=== PATIENT | female | born 1995 | race African-American/Black ===

== ENCOUNTER 2023-10-11 01:42 | Emergency (ER) | payer OTHER ==
[~2023-10-11] VITALS: Ht 157.5 cm; Wt 47.6 kg
[2023-10-11] MEDS ORDERED: ONDANSETRON HCL/PF 4 MG/2 ML VIAL ONE (01:59)
[2023-10-11] MEDS: IV NS 0.9% 1,000 ML BAG IV ONE (02:04)
[2023-10-11] MEDS: ONDANSETRON HCL/PF 4 MG/2 ML VIAL IVP ONE (02:04)
[2023-10-11] MEDS ORDERED: ONDA4TAB5 PO ×2 (02:44→09:56)
[2023-10-11 03:06] VITALS: BP 90/47; TEMP 99.2; O2SAT 99
[2023-10-12] MEDS ORDERED: ONDA4TAB5 PO (10:31)
[2023-10-12] MEDS ORDERED: OXYC1TAB8 PO (12:12)
== END 2023-10-11 03:15 | disposition home or self-care (01) ==
LOC: ER 01:44
DX: R11.2 Nausea with vomiting, unspecified (principal)
CPT/HCPCS: 99283; 96374; 96361; J2405; J7030

== ENCOUNTER 2023-10-12 08:49 | Inpatient (IN) | payer BC, OTHER ==
[2023-10-12] VITALS (12 sets, daily range): BP systolic 86–117; BP diastolic 22–58; TEMP 98.3–100; O2SAT 98–100
[~2023-10-12] VITALS: Ht 157.5 cm; Wt 46.3 kg
[~2023-10-12 08:49] MED LIST: ONDA4TAB5 PO
[2023-10-12] MEDS ORDERED: ONDANSETRON HCL/PF 4 MG/2 ML VIAL ONE (09:14)
[2023-10-12] MEDS: ONDANSETRON HCL/PF 4 MG/2 ML VIAL IVP ONE (09:15)
[2023-10-12] MEDS: IV NS 0.9% 1,000 ML BAG IV ONE (09:15)
[2023-10-12 09:44] LABS: BASOPHILS % (AUTO) 0.2 % (0.0-2.0); EOSINOPHILS % (AUTO) 0.2 % (0.0-6.0); HEMATOCRIT 44 % (33-45); HEMOGLOBIN 14.5 g/dL (11.5-14.8); LYMPHOCYTES # (AUTO) 0.1 K/uL (0.8-4.8); LYMPHOCYTES % (AUTO) 0.9 % (20.0-44.0); MEAN CORPUSCULAR HEMOGLOBIN 31 PG (26.0-33.0); MEAN CORPUSCULAR HGB CONC 33 g/dl (31.0-36.0); MEAN CORPUSCULAR VOLUME 92 fL (82-100); MONOCYTES # (AUTO) 0.3 K/uL (0.1-1.30); MONOCYTES % (AUTO) 1.5 % (2.0-12.0); NEUTROPHILS # (AUTO) 16.5 K/uL (1.8-8.9); NEUTROPHILS % (AUTO) 97.2 % (43.0-81.0); PLATELET COUNT (AUTO) 132 K/uL (150-450); RED BLOOD CELL COUNT(AUTO) 4.75 MIL/uL (4.0-5.2); RED CELL DISTRIBUTION WIDTH 13.3 % (11.5-15.0)
[2023-10-12 10:05] LABS: ALANINE AMINOTRANSFERASE 300 U/L (12-78); ALBUMIN 3.2 g/dL (3.4-5.0); ALKALINE PHOSPHATASE 51 U/L (46-116); ASPARTATE AMINOTRANSFERASE 777 U/L (15-37); BILIRUBIN,DIRECT 0.5 mg/dL (0.0-0.2); BILIRUBIN,TOTAL 1.1 mg/dL (0.2-1.0); CALCIUM, SERUM 8.4 mg/dL (8.5-10.1); CARBON DIOXIDE 20 mmol/L (21-32); CHLORIDE 94 mmol/L (98-107); GLUCOSE 122 mg/dL (74-106); LIPASE 15 U/L (16-77); POTASSIUM 3.3 mmol/L (3.5-5.1); SODIUM SERUM 131 mmol/L (136-145); TOTAL PROTEIN, SERUM 7.4 g/dL (6.4-8.2); UREA NITROGEN, BLOOD 46 mg/dL (7-18)
[2023-10-12 10:18] LABS: LACTIC ACID 5.8 mmol/L (0.4-2.0)
[2023-10-12] MEDS ORDERED: IOHEXOL-300 100 ML VIAL IV ONE (10:21)
[2023-10-12] MEDS ORDERED: IV NS 0.9% 250 ML IV ONE (10:21)
[2023-10-12] MEDS ORDERED: CT SWABBABLE VALVE TRANS SET 1 EA INFUS.SET MC ONE (10:21)
[2023-10-12] MEDS ORDERED: ONDA4TAB5 PO (10:31)
[2023-10-12] MEDS ORDERED: PIPERACI/TAZO 3.375GM/D5W 50ML PB IV ONE (10:47)
[2023-10-12] MEDS: PIPERACILLIN /TAZOBACTAM 3.375 G in IV D5W 50 ML IV ONE (10:55)
[2023-10-12 11:56] LABS: ACETAMINOPHEN <10 ug/ml (10-30); SALICYLATE 1.1 mg/dL (2.8-20.0)
[2023-10-12] MEDS ORDERED: OXYC1TAB8 PO (12:12)
[2023-10-12] MEDS ORDERED: MORPHINE SULFATE INJ 2 MG/ML DISP.SYRIN IV PRN (13:00)
[2023-10-12] MEDS ORDERED: Z GUARD REMEDY 4 OZ OINT TP PRN (13:00)
[2023-10-12] MEDS ORDERED: HYDROCODONE/APAP 5/325MG TABLET PO PRN (13:00)
[2023-10-12] MEDS: IV NS 0.9% 1,000 ML IV PRN ×2 (13:22→20:55)
[2023-10-12] MEDS: PIPERACILLIN /TAZOBACTAM 2.25 G in IV D5W 50 ML IV SCH (14:20)
[2023-10-12] MEDS: ACETAMINOPHEN 325 MG TABLET PO PRN (14:34)
[2023-10-12] MEDS: IV NS 0.9% 500 ML IV ONE (16:35)
[2023-10-12 18:59] LABS: BASOPHILS % (AUTO) 0.1 % (0.0-2.0); EOSINOPHILS # (AUTO) 0.1 K/uL (0.0-0.7); EOSINOPHILS % (AUTO) 0.5 % (0.0-6.0); HEMATOCRIT 35 % (33-45); HEMOGLOBIN 11.9 g/dL (11.5-14.8); LYMPHOCYTES # (AUTO) 0.2 K/uL (0.8-4.8); LYMPHOCYTES % (AUTO) 1.3 % (20.0-44.0); MEAN CORPUSCULAR HEMOGLOBIN 31 PG (26.0-33.0); MEAN CORPUSCULAR HGB CONC 34 g/dl (31.0-36.0); MEAN CORPUSCULAR VOLUME 92 fL (82-100); MONOCYTES # (AUTO) 0.2 K/uL (0.1-1.30); MONOCYTES % (AUTO) 1.1 % (2.0-12.0); NEUTROPHILS # (AUTO) 14.7 K/uL (1.8-8.9); PLATELET COUNT (AUTO) 71 K/uL (150-450); RED BLOOD CELL COUNT(AUTO) 3.83 MIL/uL (4.0-5.2); RED CELL DISTRIBUTION WIDTH 13.4 % (11.5-15.0); WHITE BLOOD COUNT (AUTO) 15.2 K/uL (4.3-11.0)
[2023-10-12 19:17] LABS: ALBUMIN 2.2 g/dL (3.4-5.0); CALCIUM, SERUM 6.7 mg/dL (8.5-10.1); CREATININE 4.6 mg/dL (0.6-1.3); PHOSPHORUS 3.6 mg/dL (2.5-4.9); POTASSIUM 3.4 mmol/L (3.5-5.1); TOTAL PROTEIN, SERUM 5.2 g/dL (6.4-8.2)
[2023-10-12 19:25] LABS: BAND % (MANUAL) 5 % (0.0-5.0); LYMPHOCYTES % (MANUAL) 1 % (16-48); MONOCYTES % (MANUAL) 6 % (0-11.0)
[2023-10-12 19:26] LABS: ANISOCYTOSIS 1+; PLATELET ESTIMATE DECREASED
[2023-10-12 19:27] LABS: OVALOCYTES 1+
[2023-10-12 19:30] LABS: NEUTROPHILS % (MANUAL) 88 (42-76)
[2023-10-12 19:35] LABS: MAGNESIUM 1.1 mg/dL (1.8-2.4)
[2023-10-12] MEDS ORDERED: Magnesium 1GM/D5W 100ML PREMIX 100 ML IV SCH (20:00)
[2023-10-12] MEDS ORDERED: IV NS 0.9% 1,000 ML BAG IV PRN (20:30)
[2023-10-12] MEDS: POTASSIUM CL. PREMIX PERIPHER. 50 ML IV SCH (20:43)
[2023-10-12] MEDS: Magnesium 1GM/D5W 100ML PREMIX 100 ML IV SCH (21:06)
[2023-10-12] MEDS: IV NS 0.9% 250 ML IV PRN (21:36)
[2023-10-12 22:20] LABS: APPEARANCE,URINE CLOUDY (CLEAR); BILIRUBIN,URINE 1+ (NEGATIVE); BLOOD, URINE 3+ Ery/uL (NEGATIVE); COLOR,URINE DARK YELLOW (YELLOW); KETONES,URINE NEGATIVE (NEGATIVE); LEUKOCYTE ESTERASE ,URINE 3+ (NEGATIVE); NITRITE, URINE NEGATIVE (NEGATIVE); PH,URINE 5.5 (5.0-8.0); PROTEIN,URINE 1+ mg/dl (NEGATIVE); UGLUCOSE NEGATIVE (NEGATIVE); UROBILINOGEN,URINE 0.2 EU/dL (0.2)
[2023-10-12 22:23] LABS: ADD URINE CULTURE YES; BACTERIA,URINE Few /HPF (None Seen); SQUAMOUS EPITHELIAL CELL,UR Moderate /HPF (None Seen); WBC,URINE 51-80 /HPF (0-3)
[2023-10-12] MEDS ORDERED: Magnesium 1GM/D5W 100ML PREMIX 100 ML IV ONE ×2 (23:30)
[2023-10-13] VITALS (42 sets, daily range): BP systolic 89–143; BP diastolic 28–99; TEMP 97.5–100.3; O2SAT 81–100
[2023-10-13] MEDS: ONDANSETRON HCL/PF 4 MG/2 ML VIAL IVP PRN (03:55)
[2023-10-13 04:06] LABS: BASOPHILS % (AUTO) 0.2 % (0.0-2.0); EOSINOPHILS # (AUTO) 0.1 K/uL (0.0-0.7); EOSINOPHILS % (AUTO) 1.4 % (0.0-6.0); HEMATOCRIT 32 % (33-45); HEMOGLOBIN 10.9 g/dL (11.5-14.8); LYMPHOCYTES # (AUTO) 0.2 K/uL (0.8-4.8); LYMPHOCYTES % (AUTO) 1.7 % (20.0-44.0); MEAN CORPUSCULAR HEMOGLOBIN 31 PG (26.0-33.0); MEAN CORPUSCULAR HGB CONC 34 g/dl (31.0-36.0); MEAN CORPUSCULAR VOLUME 91 fL (82-100); MONOCYTES # (AUTO) 0.1 K/uL (0.1-1.30); MONOCYTES % (AUTO) 1.2 % (2.0-12.0); NEUTROPHILS % (AUTO) 95.5 % (43.0-81.0); PLATELET COUNT (AUTO) 64 K/uL (150-450); RED BLOOD CELL COUNT(AUTO) 3.53 MIL/uL (4.0-5.2); RED CELL DISTRIBUTION WIDTH 13.7 % (11.5-15.0); WHITE BLOOD COUNT (AUTO) 10.5 K/uL (4.3-11.0)
[2023-10-13] MEDS ORDERED: MENTHOL/CETYLPYRD (CEPACOL) 1 LOZ LOZENGE ONE (04:14)
[2023-10-13] MEDS: MENTHOL/CETYLPYRD (CEPACOL) 1 LOZ LOZENGE PO ONE (04:15)
[2023-10-13 04:24] LABS: ALBUMIN 1.8 g/dL (3.4-5.0); CALCIUM, SERUM 6.1 mg/dL (8.5-10.1); CREATININE 4.9 mg/dL (0.6-1.3); PHOSPHORUS 3.8 mg/dL (2.5-4.9); POTASSIUM 3.9 mmol/L (3.5-5.1); TOTAL PROTEIN, SERUM 4.6 g/dL (6.4-8.2)
[2023-10-13] MEDS: PANTOPRAZOLE 40 MG VIAL IV SCH (08:05)
[2023-10-13] MEDS: IV LR 1000 ML 1,000 ML IV ONE (08:37)
[2023-10-13 08:46] LABS: APPEARANCE,URINE CLOUDY (CLEAR); BILIRUBIN,URINE NEGATIVE (NEGATIVE); BLOOD, URINE 3+ Ery/uL (NEGATIVE); COLOR,URINE YELLOW (YELLOW); KETONES,URINE NEGATIVE (NEGATIVE); LEUKOCYTE ESTERASE ,URINE NEGATIVE (NEGATIVE); NITRITE, URINE NEGATIVE (NEGATIVE); PROTEIN,URINE 1+ mg/dl (NEGATIVE); UGLUCOSE NEGATIVE (NEGATIVE); UROBILINOGEN,URINE 0.2 EU/dL (0.2)
[2023-10-13 08:50] LABS: CREATININE, URINE 56.1 MG/DL (30.0-125.0); URINE TOTAL PROTEIN 72.8 mg/dL (0-11.9)
[2023-10-13 08:55] LABS: ADD URINE CULTURE NO; BACTERIA,URINE Rare /HPF (None Seen); SQUAMOUS EPITHELIAL CELL,UR Moderate /HPF (None Seen)
[2023-10-13 09:22] LABS: PREGNANCY TEST URINE QUAL NEGATIVE (NEGATIVE)
[2023-10-13 09:47] LABS: EOSINOPHIL,URINE None Seen
[2023-10-13 11:43] LABS: ANISOCYTOSIS 1+; BASOPHILS % (MANUAL) 0 % (0.0-2.0); EOSINOPHILS % (MANUAL) 2 % (0-4); LYMPHOCYTES % (MANUAL) 5 % (16-48); MONOCYTES % (MANUAL) 6 % (0-11.0); NEUTROPHILS % (MANUAL) 87 (42-76); OVALOCYTES 1+; PLATELET ESTIMATE DECREASED
[2023-10-13 13:16] LABS: CALCIUM, SERUM 6.1 mg/dL (8.5-10.1); CREATININE 4.4 mg/dL (0.6-1.3); POTASSIUM 4.1 mmol/L (3.5-5.1)
[2023-10-13] MEDS: CEFEPIME 2 GM in IV D5W 100 ML IV SCH (13:17)
[2023-10-13] MEDS: METRONIDAZOLE 500MG/ NS 100ML 500 MG in PREMIX 1 EA IV SCH (14:06)
[2023-10-13] MEDS ORDERED: ALPR0.255 PO (21:12)
[2023-10-13] MEDS: LINEZOLID RTU BAG 600 MG in PREMIX 1 EA IV SCH (21:29)
[2023-10-13] MEDS ORDERED: NORMAL SALINE FLUSH 10 ML SYR MC PRN (21:30)
[2023-10-13] MEDS: ALPRAZOLAM 0.25 MG TABLET PO PRN (22:24)
[2023-10-14] VITALS (24 sets, daily range): BP systolic 90–130; BP diastolic 40–87; TEMP 97.7–98.6; O2SAT 97–100
[2023-10-14 04:48] LABS: BASOPHILS # (AUTO) 0.1 K/uL (0.0-0.2); BASOPHILS % (AUTO) 0.5 % (0.0-2.0); EOSINOPHILS # (AUTO) 0.1 K/uL (0.0-0.7); EOSINOPHILS % (AUTO) 0.5 % (0.0-6.0); HEMATOCRIT 29 % (33-45); HEMOGLOBIN 9.9 g/dL (11.5-14.8); LYMPHOCYTES # (AUTO) 0.4 K/uL (0.8-4.8); LYMPHOCYTES % (AUTO) 3.9 % (20.0-44.0); MEAN CORPUSCULAR HEMOGLOBIN 31 PG (26.0-33.0); MEAN CORPUSCULAR HGB CONC 34 g/dl (31.0-36.0); MEAN CORPUSCULAR VOLUME 90 fL (82-100); MONOCYTES # (AUTO) 0.6 K/uL (0.1-1.30); MONOCYTES % (AUTO) 5.3 % (2.0-12.0); NEUTROPHILS % (AUTO) 89.8 % (43.0-81.0); RED BLOOD CELL COUNT(AUTO) 3.21 MIL/uL (4.0-5.2); RED CELL DISTRIBUTION WIDTH 13.8 % (11.5-15.0); WHITE BLOOD COUNT (AUTO) 11.1 K/uL (4.3-11.0)
[2023-10-14 05:06] LABS: ALBUMIN 1.9 g/dL (3.4-5.0); BILIRUBIN,TOTAL 1.3 mg/dL (0.2-1.0); CALCIUM, SERUM 6.3 mg/dL (8.5-10.1); CREATININE 2.7 mg/dL (0.6-1.3); MAGNESIUM 2.1 mg/dL (1.8-2.4); PHOSPHORUS 3.2 mg/dL (2.5-4.9); POTASSIUM 4.2 mmol/L (3.5-5.1); TOTAL PROTEIN, SERUM 4.8 g/dL (6.4-8.2)
[2023-10-14 05:15] LABS: PLATELET COUNT (AUTO) 42 K/uL (150-450)
[2023-10-14 05:59] LABS: ANISOCYTOSIS 1+; BAND % (MANUAL) 2 % (0.0-5.0); BASOPHILS % (MANUAL) 0 % (0.0-2.0); EOSINOPHILS % (MANUAL) 0 % (0-4); LYMPHOCYTES % (MANUAL) 6 % (16-48); MONOCYTES % (MANUAL) 7 % (0-11.0); NEUTROPHILS % (MANUAL) 85 (42-76); PLATELET ESTIMATE DECREASED
[2023-10-14] MEDS ORDERED: SALINE NASAL SPRAY 0.65% 1 BOTTLE BOTTLE NS PRN (07:30)
[2023-10-14] MEDS: IV NS 0.9% 1,000 ML IV PRN (09:50)
[2023-10-14] MEDS: MENTHOL/CETYLPYRD (CEPACOL) 1 LOZ LOZENGE PO PRN (20:34)
[2023-10-15 08:00] VITALS: BP 94/59; TEMP 97.5; O2SAT 100
[2023-10-15 08:04] LABS: BASOPHILS % (AUTO) 0.1 % (0.0-2.0); EOSINOPHILS # (AUTO) 0.2 K/uL (0.0-0.7); EOSINOPHILS % (AUTO) 2.1 % (0.0-6.0); HEMATOCRIT 30 % (33-45); HEMOGLOBIN 10.1 g/dL (11.5-14.8); LYMPHOCYTES # (AUTO) 1.6 K/uL (0.8-4.8); LYMPHOCYTES % (AUTO) 18.9 % (20.0-44.0); MEAN CORPUSCULAR HEMOGLOBIN 31 PG (26.0-33.0); MEAN CORPUSCULAR HGB CONC 34 g/dl (31.0-36.0); MEAN CORPUSCULAR VOLUME 90 fL (82-100); MONOCYTES # (AUTO) 1.7 K/uL (0.1-1.30); MONOCYTES % (AUTO) 19.9 % (2.0-12.0); NEUTROPHILS # (AUTO) 5.1 K/uL (1.8-8.9); RED BLOOD CELL COUNT(AUTO) 3.29 MIL/uL (4.0-5.2); RED CELL DISTRIBUTION WIDTH 14.4 % (11.5-15.0); WHITE BLOOD COUNT (AUTO) 8.7 K/uL (4.3-11.0)
[2023-10-15 08:07] LABS: PTH, INTACT 153 pg/mL (15-65)
[2023-10-15 08:15] LABS: PLATELET COUNT (AUTO) 37 K/uL (150-450)
[2023-10-15 08:16] LABS: ALBUMIN 2.1 g/dL (3.4-5.0); BILIRUBIN,TOTAL 1.7 mg/dL (0.2-1.0); CREATININE 1.2 mg/dL (0.6-1.3); MAGNESIUM 2.3 mg/dL (1.8-2.4); PHOSPHORUS 1.7 mg/dL (2.5-4.9); POTASSIUM 3.5 mmol/L (3.5-5.1); TOTAL PROTEIN, SERUM 5.3 g/dL (6.4-8.2)
[2023-10-15] MEDS: IV 1/2NS 1000 ML 1,000 ML IV PRN (08:28)
[2023-10-15 10:01] LABS: BASOPHILS % (MANUAL) 0 % (0.0-2.0); EOSINOPHILS % (MANUAL) 2 % (0-4); LYMPHOCYTES % (MANUAL) 13 % (16-48); MONOCYTES % (MANUAL) 14 % (0-11.0); NEUTROPHILS % (MANUAL) 71 (42-76)
[2023-10-15 10:03] LABS: PLATELET ESTIMATE DECREASED
[2023-10-15 10:04] LABS: ANISOCYTOSIS 1+
[2023-10-15 16:00] VITALS: BP 112/70; TEMP 98.1; O2SAT 100
[2023-10-15 16:10] LABS: *SPE ALBUMIN 2.3 g/dL (2.9-4.4); *SPE ALPHA-1-GLOBULIN 0.4 g/dL (0.0-0.4); *SPE ALPHA-2-GLOBULIN 0.7 g/dL (0.4-1.0); *SPE BETA GLOBULIN 0.5 g/dL (0.7-1.3); *SPE GLOBULIN, TOTAL 2.2 g/dL (2.2-3.9); *SPE M-SPIKE Not Observed g/dL (Not Observed); *SPE PROTEIN TOTAL 4.5 g/dL (6.0-8.5); *SPEGAMMA GLOBULIN 0.6 g/dL (0.4-1.8)
[2023-10-15] MEDS: K PHOS NEUTRAL 250 MG TABLET PO ONE (18:06)
[2023-10-15 19:19] LABS: HIV-1 p24 ANTIGEN NON REACTIVE (NONREACTIVE); HIV-1/2 ANTIBODY NON REACTIVE (NONREACTIVE)
[2023-10-15 20:00] VITALS: BP 107/67; TEMP 97.3; O2SAT 100
[2023-10-16 06:22] LABS: EOSINOPHILS # (AUTO) 0.3 K/uL (0.0-0.7); EOSINOPHILS % (AUTO) 3.6 % (0.0-6.0); HEMATOCRIT 27 % (33-45); HEMOGLOBIN 9.1 g/dL (11.5-14.8); LYMPHOCYTES # (AUTO) 2.2 K/uL (0.8-4.8); LYMPHOCYTES % (AUTO) 26.5 % (20.0-44.0); MEAN CORPUSCULAR HEMOGLOBIN 31 PG (26.0-33.0); MEAN CORPUSCULAR HGB CONC 34 g/dl (31.0-36.0); MEAN CORPUSCULAR VOLUME 90 fL (82-100); MONOCYTES # (AUTO) 1.6 K/uL (0.1-1.30); MONOCYTES % (AUTO) 18.7 % (2.0-12.0); NEUTROPHILS # (AUTO) 4.3 K/uL (1.8-8.9); NEUTROPHILS % (AUTO) 51.2 % (43.0-81.0); RED BLOOD CELL COUNT(AUTO) 2.97 MIL/uL (4.0-5.2); RED CELL DISTRIBUTION WIDTH 14.2 % (11.5-15.0); WHITE BLOOD COUNT (AUTO) 8.5 K/uL (4.3-11.0)
[2023-10-16 06:39] LABS: D-DIMER 1.71 mg/L(FEU (0.17-0.50); INR 1.15 (0.91-1.10); PARTIAL THROMBOPLASTIN TIME 29.1 SEC (24.3-34.3); PROTHROMBIN TIME 12.1 SECS (9.2-11.1)
[2023-10-16 06:42] LABS: RHEUMATOID FACTOR SCREEN NEGATIVE (NEGATIVE)
[2023-10-16 06:48] LABS: PLATELET COUNT (AUTO) 41 K/uL (150-450)
[2023-10-16 06:56] LABS: THYROID STIMULATING HORMONE 2.887 uIU/mL (0.358-3.74)
[2023-10-16 07:04] LABS: C-REACTIVE PROTEIN 5.31 mg/dL (0.0-0.30)
[2023-10-16 08:07] VITALS: BP 105/54; TEMP 97.5; O2SAT 99
[2023-10-16] MEDS: CEFEPIME 1 GM in IV D5W 50 ML IV SCH (09:54)
[2023-10-16 10:12] LABS: ANISOCYTOSIS 1+; BAND % (MANUAL) 1 % (0.0-5.0); EOSINOPHILS % (MANUAL) 2 % (0-4); LYMPHOCYTES % (MANUAL) 24 % (16-48); MONOCYTES % (MANUAL) 14 % (0-11.0); NEUTROPHILS % (MANUAL) 59 (42-76); PLATELET ESTIMATE DECREASED; ROULEAUX FEW
[2023-10-16 15:44] VITALS: BP 103/56; TEMP 98.8; O2SAT 100
[2023-10-16] MEDS ORDERED: METRONIDAZOLE 500 MG TABLET PO SCH (21:00)
[2023-10-17 08:10] LABS: *ANA ANTI-CENTROMERE B AB <0.2 AI (0.0-0.9); *ANA ANTI-DNA(DS) AB, QN <1 IU/mL (0-9); *ANA ANTI-JO-1 <0.2 AI (0.0-0.9); *ANA ANTICHROMATIN ANTIBODY <0.2 AI (0.0-0.9); *ANA RNP ANTIBODIES 0.4 AI (0.0-0.9); *ANA SJOGREN'S ANTI-SS-A <0.2 AI (0.0-0.9); *ANA SJOGREN'S ANTI-SS-B <0.2 AI (0.0-0.9); *ANAANTI-SCLERODERMA-70 AB <0.2 AI (0.0-0.9); *ANASMITH AB <0.2 AI (0.0-0.9); FOLIC ACID 10.2 ng/mL (>3.0); HEPATITIS B SURFACE AB Reactive (.)
[2023-10-17 09:12] LABS: IMMUNOGLOBULIN A, SERUM 81 mg/dL (87-352); IMMUNOGLOBULIN G, SERUM 680 mg/dL (586-1602); IMMUNOGLOBULIN M, SERUM 236 mg/dL (26-217)
[2023-10-17 13:07] LABS: FREE KAPPA LT CHAINS SERUM 20.4 mg/L (3.3-19.4); KAPPA/LAMBDA RATIO SERUM 0.97 (0.26-1.65)
== END 2023-10-16 18:15 | disposition home or self-care (01) | DRG 871 ==
LOC: ER 08:56 → ICU 12:38 → MED 10-14 19:31
PROVIDERS: ATTEND Nurse Practitioner Acute Care
DX: A41.9 Sepsis, unspecified organism (principal); I21.A1 Myocardial infarction type 2; R65.21 Severe sepsis with septic shock; N17.0 Acute kidney failure with tubular necrosis; K72.00 Acute and subacute hepatic failure without coma; D61.818 Other pancytopenia; E87.20 Acidosis, unspecified; K56.7 Ileus, unspecified; M62.82 Rhabdomyolysis; E87.1 Hypo-osmolality and hyponatremia; E88.09 Other disorders of plasma-protein metabolism, not elsewhere classified; D72.821 Monocytosis (symptomatic); E83.51 Hypocalcemia; E86.0 Dehydration; E83.42 Hypomagnesemia; E87.6 Hypokalemia; Z20.822 Contact with and (suspected) exposure to COVID-19; E86.1 Hypovolemia; D69.6 Thrombocytopenia, unspecified; R74.01 Elevation of levels of liver transaminase levels; R00.0 Tachycardia, unspecified; Z98.890 Other specified postprocedural states
CPT/HCPCS: 36415; 70486-TC; 71045-TC; 74018; 76700-TC; 76705-TC; 80048-TC; 80053-TC; 80076-TC; 81001; 82550-TC; 82553; 82570-TC; 82607-TC; 82728-TC; 82784; 83540-TC; 83605-TC; 83690-TC; 83735-TC; 83970; 84100-TC; 84155; 84165; 84300-TC; 84439-TC; 84443-TC; 84484-TC; 84703-TC; 85025-TC; 85396; 86140-TC; 86225; 86235; 86334; 86431-TC; 86706; 86708; 86709; 86803; 87040-TC; 87081-TC; 87086-TC; 87340; 87806; 93307-TC; A4216; A4223; C9113; G0378; J0692; J2020; J2405; J2543; J3475; J3480; J3490; J7030; J7040; J7050; J7060; J7120; Q9967